=== PATIENT | male | born 1945 ===

== ENCOUNTER 2021-05-09 16:24 | Observation (INO) ==
[2021-05-09] MEDS ORDERED: NS 0.9% 1000 ml BAG 1,000 ML IV ONE (17:44)
[2021-05-09 18:07] LABS: Hematocrit 31 % (42-52); Hemoglobin 10.6 g/dL (14.0-18.0); Mean Corpuscular HGB Conc 34 g/dL (31-36); Mean Corpuscular Hemoglobin 28 pg (27-31); Mean Corpuscular Volume 84 fL (80-94); Platelet Count 248 10^3/uL (150-450); Red Blood Count 3.74 10^6 /uL (4.18-5.48); Red Cell Distribution Width 13 % (10-15); Venous Bicarbonate HCO3 22.7 mmol/L (24-28)
[2021-05-09 18:18] LABS: Activated Partial Thrombo Time 25.4 seconds (26.0-38.0); INR 1.04 (0.86-1.15)
[2021-05-09 18:29] LABS: Albumin 3.6 g/dL (3.2-5.2); Albumin/Globulin Ratio 1.1 (1-3); C Reactive Protein 76.6 mg/L (<8.01); Calcium 8.2 mg/dL (8.6-10.3); EGFR African American 28.7 (>60); EGFR Non-African American 23.7 (>60); Globulin 3.2 g/dL (2-4); Total Bilirubin 0.6 mg/dL (0.2-1.0); Total Protein 6.8 g/dL (6.4-8.9); Troponin I 0.01 ng/mL (<0.03)
[2021-05-09 18:33] LABS: Potassium 5.5 mmol/L (3.5-5.0)
[2021-05-09 19:16] LABS: ABS Monocytes 1.1 10^3/ul (0-0.8); Eosinophil % 0.1 %; Lymphocyte % 9.9 %; RBC Morphology Normal (Normal)
[2021-05-09] MEDS ORDERED: Sodium Polystyrene ORAL.SUSP 15 GM/60 ML BTL PO ONE (20:17)
[2021-05-09] MEDS ORDERED: Dextrose 50% Syringe 50 ml 25 GM/50 ML SYRINGE IV PUSH PRN (20:20)
[2021-05-09 20:50] LABS: Urine Appearance Clear; Urine Bilirubin Negative (Negative); Urine Blood 3+ (Negative); Urine Color Straw; Urine Glucose 3+(>=500 mg/dL) (Negative); Urine Ketones Negative (Negative); Urine Nitrite Negative (Negative); Urine Protein 1+(30 mg/dL) (Negative); Urine Specific Gravity 1.003 (1.002-1.030); Urine Urobilinogen Negative (Negative)
[2021-05-09 20:54] LABS: TSH Ultra Thyroid Stim Horm 4.09 mcIU/mL (0.34-5.60)
[2021-05-09 20:58] LABS: Urine Bacteria Absent (Absent); Urine Red Blood Cell Trace(0-2/hpf) (Absent); Urine Squamous Epithelial Cell Present (Absent); Urine White Blood Cell Absent (Absent)
[2021-05-09] MEDS ORDERED: NS 0.9% 1000 ml BAG 1,000 ML IV SCH (22:15)
[2021-05-10 05:29] LABS: Hematocrit 29 % (42-52); Mean Corpuscular HGB Conc 35 g/dL (31-36); Mean Corpuscular Hemoglobin 29 pg (27-31); Mean Corpuscular Volume 83 fL (80-94); Mean Platelet Volume 7.7 fL (7.4-10.4); Platelet Count 245 10^3/uL (150-450); Red Blood Count 3.46 10^6 /uL (4.18-5.48); Red Cell Distribution Width 13 % (10-15); White Blood Count 7.2 10^3/uL (3.5-10.8)
[2021-05-10 05:53] LABS: Calcium 7.8 mg/dL (8.6-10.3); EGFR African American 35.4 (>60); EGFR Non-African American 29.2 (>60); Potassium 4.4 mmol/L (3.5-5.0)
[2021-05-10 07:54] LABS: ABS Lymphocytes 1.1 10^3/ul (1.0-4.8); ABS Monocytes 0.9 10^3/ul (0-0.8); ABS Neutrophils 5.2 10^3/ul (1.5-7.7); Eosinophil % 0.4 %; Lymphocyte % 14.9 %
[2021-05-10 07:56] LABS: RBC Morphology Normal (Normal)
[2021-05-10] MEDS ORDERED: CMCS: Alfuzosin ER 10 mg TAB.ER (NF) 10 MG TAB.ER PO SCH (09:00)
[2021-05-10 13:30] VITALS: BP 126/52
== END 2021-05-10 14:15 | disposition home or self-care (01) ==
LOC: EDBD → ED 16:24 → MED 16:24 → MERGE 23:06 → MED 23:30
PROVIDERS: ADMIT Internal Medicine; ATTEND Internal Medicine